=== PATIENT | male | born 1950 | race Caucasian/White ===

== ENCOUNTER 2019-10-06 08:36 | Outpatient (CLI) | payer MEDICARE, MEDICAID | END 2019-10-06 23:59 | disposition home or self-care (01) | LOC: CARD 08:36 | PROVIDERS: ATTEND Nurse Practitioner Family | DX: R56.9 Unspecified convulsions (principal) | CPT/HCPCS: 95819 ==

== ENCOUNTER 2020-12-22 13:20 | Outpatient (CLI) | payer MEDICARE, MEDICAID | END 2020-12-22 23:59 | disposition home or self-care (01) | LOC: CFH 13:20 | PROVIDERS: ATTEND Physician Assistant | DX: Z12.2 Encounter for screening for malignant neoplasm of respiratory organs (principal); R91.1 Solitary pulmonary nodule; Z87.891 Personal history of nicotine dependence | CPT/HCPCS: 71271 ==

== ENCOUNTER → 2021-01-26 | Outpatient (CLI) | payer MEDICARE, MEDICAID | END | disposition home or self-care (01) | LOC: PETCFH 12:53 | PROVIDERS: ATTEND Physician Assistant | DX: R91.1 Solitary pulmonary nodule (principal) | CPT/HCPCS: 78815; A9552 ==

== ENCOUNTER 2021-04-17 18:47 | Emergency (ER) | payer MEDICARE, MEDICAID ==
[~2021-04-17] VITALS: Ht 170.2 cm; Wt 54.1 kg
[2021-04-17 19:04] VITALS: BP 127/101
--- NOTE | 2021-04-17 22:07 | NUR ---
employment law specialist: FAN @[id number]
--- NOTE | 2021-04-17 22:20 | NUR ---
hot header operator: FAN @[id number]
--- NOTE | 2021-04-17 22:40 | NUR ---
shoe ironer: FAN @[id number]
== END 2021-04-17 23:09 | disposition left against medical advice (07) ==
LOC: ED 20:00
DX: M79.671 Pain in right foot (principal)
CPT/HCPCS: 99283

== ENCOUNTER 2021-05-03 13:32 | Emergency (ER) | payer MEDICARE, MEDICAID ==
[~2021-05-03] VITALS: Ht 170.2 cm; Wt 51.6 kg
[2021-05-03 13:38] VITALS: BP 137/84
[2021-05-03 15:06] LABS: ALANINE AMINOTRANSFERASE 16 U/L (12-78); ALBUMIN 3.8 g/dL (3.4-5.0); ANION GAP 4 mmol/L (5-15); CALCIUM 9.3 mg/dL (8.5-10.1); CHLORIDE 106 mmol/L (98-107); CREATININE 1.11 mg/dL (0.7-1.3)
[2021-05-03 15:09] LABS: ALKALINE PHOSPHATASE 94 U/L (45-117); BILIRUBIN,TOTAL 0.6 mg/dL (0.2-1.0); TOTAL PROTEIN 7.8 g/dL (6.4-8.2)
[2021-05-03 15:15] LABS: BASOPHILS % (AUTO) 1 % (0-1); EOSINOPHILS % (AUTO) 0 % (1-7); LYMPHOCYTES % (AUTO) 8 % (22-44); MEAN CORPUSCULAR HEMOGLOBIN 30.5 pg (27.5-34.5); MEAN CORPUSCULAR HGB CONC 33.7 g/dL (33.2-36.2); MEAN PLATELET VOLUME 7.3 fL (7.4-10.4); MONOCYTES % (AUTO) 4 % (2-9); NEUTROPHILS % (AUTO) 87 % (42-75); PLATELET COUNT 231 x10^3/uL (130-400); RED BLOOD COUNT 5.59 x10^6/uL (4.38-5.82); RED CELL DISTRIBUTION WIDTH 14.9 % (9.4-14.8)
--- NOTE | 2021-05-03 17:43 | NUR ---
NIL X1
== END 2021-05-03 18:06 | disposition left against medical advice (07) ==
LOC: ED 18:00
DX: K59.00 Constipation, unspecified (principal); R10.84 Generalized abdominal pain
CPT/HCPCS: 36415; 74021; 80053; 83690; 85025; 99284